=== PATIENT | male | born 1985 | race African-American/Black ===

== ENCOUNTER 2019-04-06 12:47 | Inpatient (IN) ==
[2019-04-06] MEDS ORDERED: ASPIRIN PO ONE (13:08)
[2019-04-06] MEDS ORDERED: DECADRON IV ONE (13:23)
[2019-04-06] MEDS ORDERED: TORADOL IV ONE (13:23)
[2019-04-06] MEDS ORDERED: NORFLEX IV ONE (13:23)
[2019-04-06 13:27] LABS: BASO# 0.02 X1000 (0.0-0.2); BASO% 0.2 % (0.0-0.8); EOS# 0.04 X1000 (0.0-0.7); EOS% 0.4 % (0.0-10.0); HEMATOCRIT 44.1 % (42.0-52.0); HEMOGLOBIN 14.6 g/dL (14.0-18.0); IMM GRAN# 0.04 X1000 (0.0-0.04); IMM GRAN% 0.4 % (0.0-0.5); LYMPH# 1.41 X1000 (1.2-3.4); MCH 26.4 PG (27-31); MCHC 33.1 g/dL (33-37); MCV 79.6 FL (81-99); MONO# 1.27 X1000 (0.11-0.59); MONO% 12.6 % (1.7-9.3); MPV 11.9 FL (7.4-10.4); NEUT# 7.26 X1000 (1.4-6.5); NEUT% 72.4 % (42.2-75.2); PLT 216 X1000 (130-400); RBC 5.54 XMIL (4.7-6.1); RDW 13.9 % (11.5-14.5); WBC 10.04 X1000 (4.8-10.8)
--- NOTE | 2019-04-06 13:37 | EKG Report ---
Test Performed on : 04/06/2019 12:56:03 PM Test Reason : sob Blood Pressure : / mmHG Vent. Rate : 104 BPM Atrial Rate : 104 BPM P-R Int : 158 ms QRS Dur : 086 ms QT Int : 324 ms P-R-T Axes : 051 018 019 degrees QTc Int : 426 ms Sinus tachycardia. Possible Left atrial enlargement Nonspecific T wave abnormality Abnormal ECG No previous ECGs available Unconfirmed Result
[2019-04-06 13:45] LABS: INR 1.14; PROTIME 14.8 Seconds (11.0-16.0)
[2019-04-06 13:46] LABS: PTT 28.2 Seconds (22.3-41.8)
[2019-04-06 13:58] LABS: AGAP 16; ALB/GLOB RATIO 1.6; ALBUMIN 4.6 g/dL (3.5-5.0); ALKALINE PHOSPHATASE 71 U/L (32-122); BUN 14 mg/dL (8-22); CALCIUM 9.4 mg/dL (8.8-10.2); CHLORIDE 98 mmol/L (98-107); COSMO 276; CREATININE 1.3 mg/dL (0.7-1.2); ESTIMATED GFR > 60; GLUCOSE 100 mg/dL (70-104); GOT 17 U/L (10-34); GPT 45 U/L (10-44); POTASSIUM 4.4 mmol/L (3.5-5.1); SODIUM 138 mmol/L (136-145); TCO2 24 mmol/L (25-35); TOTAL BILIRUBIN 1.34 mg/dL (0.20-1.00); TOTAL PROTEIN 7.4 g/dL (6.3-8.3)
[2019-04-06 14:00] LABS: CK PROFILE 227 U/L (24-204)
--- NOTE | 2019-04-06 14:19 | Diag Imaging Result Doc PS360 ---
EXAM: CT ANGIOGRM PULMONARY ARTERIES 04/06/2019 HISTORY: sob TECHNIQUE: This exam was performed using automated exposure control, adjustment of mA or kV according to patient size, and/or use of iterative reconstruction technique. COMMENT: 3-D MIPS were performed. There are filling defects in the pulmonary artery branches in both lower lobes and both upper lobes and in the main right pulmonary artery. There is a small amount of pleural fluid on the left. The aorta is normal in caliber without evidence of dissection. There are platelike opacities in the right lower lobe and denser consolidation in the left lower lobe consistent with pneumonia. The regional skeleton appears to be intact. There is no evidence of acute disease in the visualized portion of the abdomen. IMPRESSION: Bilateral pulmonary emboli. Atelectasis right lower lobe. Pneumonia and pleural effusion on the left. Electronically signed by Juan Palmer 04/06/2019 2:17 PM
[2019-04-06 14:21] LABS: CK INDEX 0.5 (0.0-2.5); CK-MB 1.05 ng/mL (0.0-5.0)
[2019-04-06] MEDS ORDERED: LOVENOX 1 MG/KG SUBQ ONE (14:37)
[2019-04-06] MEDS ORDERED: LOVENOX SUBQ ONE (15:15)
--- NOTE | 2019-04-06 15:34 | PROVIDER DOCUMENTATION ---
This chart was entered by Keyonna Dumont Scribe, acting as scribe for Nelson Buenrostro MD. HPI-Respiratory General - General Chief Complaint: Shortness of Breath Stated Complaint: SOB Time Seen by Provider: 04/06/19 13:18 Source: patient Allergies/Adverse Reactions: Patient Allergies Allergy/AdvReac Type Severity Reaction Status Date / Time No Known Allergies Allergy Verified 03/16/19 21:37 Home Medications: Home Medication List Medication Instructions Recorded Confirmed Last Taken Type Hydrocodone/Acetaminophen 1 ea PO PRN PRN 04/06/19 04/06/19 Unknown History [Hydrocodone-Acetamin 5-325 mg] - History of Present Illness-Resp Nature of Presenting Problem: Patient is a 33 year old male who presents with shortness of breath and left posterior chest wall pain. States having achilles tendon repair done by Dr. Swanson 1 week ago. Denies cough and family history of blood clots. Quality of Pain: reports: aching Severity in ED: reports: mild Onset/Duration: reports: 1 week ago Timing: reports: still present, getting worse Cough Quality/Degree: reports: no cough Modifying Factors: worse with: deep breath Associated Symptoms: reports: chest pain/soreness, shortness of breath. denies: cough Similar Symptoms Previously?: Yes Recently seen or treated by another doctor?: Yes Review of Systems - Adult - REVIEW OF SYSTEMS - ADULT Constitutional: reports: no symptoms reported Eyes: reports: no symptoms reported Ears, Nose, Mouth & Throat: reports: no symptoms reported Cardiovascular: reports: no symptoms reported Respiratory: reports: see HPI, shortness of breath. denies: cough, wheezing Gastrointestinal: reports: no symptoms reported Genitourinary: reports: no symptoms reported Musculoskeletal: reports: see HPI, other (left posterior chest wall pain). denies: back pain, neck pain Integumentary: reports: no symptoms reported Neurological: reports: no symptoms reported Psychiatric: reports: no symptoms reported Endocrine: reports: no symptoms reported Hematologic/Lymphatic: reports: no symptoms reported Allergic/Immunologic: reports: no symptoms reported All Other Systems: Reviewed and Negative Past History - Adult - PAST MEDICAL HISTORY-ADULT Review of Records: reports: Old Records Reviewed, Nursing Assessment Review, Medications Reviewed, Social history reviewed & non-contributory. Major Childhood Illnesses: reports: denies history Cardiovascular: reports: denies history Respiratory: reports: denies history Gastrointestinal: reports: denies history Obstetrical/Gynecological: reports: denies history Genitourinary: reports: denies history Musculoskeletal: reports: denies history Neurological: reports: denies history Endocrine/Immune: reports: denies history Other Conditions: reports: denies history - PRIOR SURGERIES/PROCEDURES Surgical/Procedure History: reports: reviewed, not pertinent - IMMUNIZATION STATUS Childhood Immunizations: See Nurse Assessment Flu Vaccine: See Nurse Assessment - FAMILY HISTORY Family History: reviewed, not pertinent - SOCIAL HISTORY Smoking: denies Substance Use: denies Physical Exam-General - PHYSICAL EXAM-ADULT Initial Vital Signs Reviewed: Yes - CONSTITUTIONAL General Appearance: alert, no apparent distress. negative: lethargic - HEAD, EARS, NOSE, MOUTH & THROAT HENMT: normocephalic/atraumatic, moist mucous membranes. negative: angioedema - RESPIRATORY Respiratory: chest non-tender, lungs clear, normal breath sounds. negative: crackles, rhonchi - CARDIOVASCULAR Cardiovascular: tachycardia. negative: regular rate, rhythm, systolic murmur - GASTROINTESTINAL (ABDOMEN) Abdominal Exam: normal bowel sounds, non tender, soft. negative: rigid - SKIN Integumentary: normal color, normal turgor, warm/dry. negative: pallor - NEUROLOGIC Neurologic: grossly normal. negative: aphasia, facial droop - PSYCHIATRIC Psych/Mental Status: normal mood/affect, oriented x 3. negative: anxious Progress - PLAN OF CARE/RESULTS Progress/Plan/Lab Results: Vital Signs - 8 hr 04/06/19 13:00 Temperature 97.5 F L Pulse Rate 108 H Respiratory Rate 20 Blood Pressure 155/77 O2 Sat by Pulse Oximetry 92 L Laboratory Results - last 24 hr 04/06/19 04/06/19 04/06/19 13:02 13:02 13:02 WBC 10.04 RBC 5.54 Hgb 14.6 Hct 44.1 MCV 79.6 L MCH 26.4 L MCHC 33.1 RDW Std Deviation 13.9 Plt Count 216 MPV 11.9 H Immature Gran % (Auto) 0.4 Neut % (Auto) 72.4 Lymph % (Auto) 14.0 L Tama % (Auto) 12.6 H Eos % (Auto) 0.4 Baso % (Auto) 0.2 Immature Gran # (Auto) 0.04 Neut # (Auto) 7.26 H Lymph # (Auto) 1.41 Tama # (Auto) 1.27 H Eos # (Auto) 0.04 Baso # (Auto) 0.02 PT INR PTT (Actin FS) Sodium 138 Potassium 4.4 Chloride 98 Carbon Dioxide 24 L Anion Gap 16 BUN 14 Creatinine 1.3 H Estimated GFR/1.73 m2 > 60 BUN/Creatinine Ratio 11 Glucose 100 Calculated Osmolality 276 Calcium 9.4 Total Bilirubin 1.34 H AST 17 ALT 45 H Alkaline Phosphatase 71 Creatine Kinase 227 H Creatine Kinase Index 0.5 CK-MB (CK-2) 1.05 Troponin T [id number] Pept 13 Total Protein 7.4 Albumin 4.6 Globulin 2.8 Albumin/Globulin Ratio 1.6 04/06/19 04/06/19 13:02 13:02 WBC RBC Hgb Hct MCV MCH MCHC RDW Std Deviation Plt Count MPV Immature Gran % (Auto) Neut % (Auto) Lymph % (Auto) Tama % (Auto) Eos % (Auto) Baso % (Auto) Immature Gran # (Auto) Neut # (Auto) Lymph # (Auto) Tama # (Auto) Eos # (Auto) Baso # (Auto) PT 14.8 INR 1.14 PTT (Actin FS) 28.2 Sodium Potassium Chloride Carbon Dioxide Anion Gap BUN Creatinine Estimated GFR/1.73 m2 BUN/Creatinine Ratio Glucose Calculated Osmolality Calcium Total Bilirubin AST ALT Alkaline Phosphatase Creatine Kinase Creatine Kinase Index CK-MB (CK-2) Troponin T < 0.010 [id number] Pept Total Protein Albumin Globulin Albumin/Globulin Ratio Orders Category Date Time Status Cardiac Monitoring DIRECTED Care 04/06/19 13:08 Active Oxygen Therapy- ED Nursing DIRECTED Care 04/06/19 13:08 Active Saline Loc NOW Care 04/06/19 13:08 Active CTA [CT ANGIOGRM PULMONARY ARTERIES] [CT] Stat Exams 04/06/19 13:11 Completed CBC WITH ELECTRONIC DIFF [HEME] Stat Lab 04/06/19 13:02 Completed CK PROFILE [SP CHEM] Stat Lab 04/06/19 13:02 Completed COMPREHENSIVE METABOLIC PANEL [CHEM] Stat Lab 04/06/19 13:02 Completed PRO B-NATRIURETIC PEPTIDE Stat Lab 04/06/19 13:02 Completed PROTIME WITH INR [COAG] Stat Lab 04/06/19 13:02 Completed PTT [COAG] Stat Lab 04/06/19 13:02 Completed TROPONIN T Stat Lab 04/06/19 13:02 Completed Aspirin Med 04/06/19 13:08 Discontinued 325 mg PO NOW ONE Dexamethasone [Decadron] Med 04/06/19 13:23 Discontinued 10 mg IV NOW ONE Enoxaparin 1 mg/kg [Lovenox 1 mg/kg] Med 04/06/19 14:37 Discontinued 1 each SUBQ NOW ONE Enoxaparin [Lovenox] Med 04/06/19 15:15 Discontinued 110 mg SUBQ NOW ONE Ketorolac [Toradol] Med 04/06/19 13:23 Discontinued 30 mg IV NOW ONE Orphenadrine [Norflex] Med 04/06/19 13:23 Discontinued 60 mg IV NOW ONE CP/SOB/Palp >45 yrs of Age Stat Oth 04/06/19 13:08 Ordered EKG [EKG] Stat Ther 04/06/19 13:08 Draft Transfer/Admit Order [TRANSFER] Routine Transfer 04/06/19 15:23 Ordered Result Diagrams: 04/06/19 13:02 04/06/19 13:02 - EKG 1 Time of EKG reading by physician:: 12:56 EKG Read and Signed by:: Nelson Buenrostro EKG Interpretation (*Must complete 3 of following elements*): Abnormal Rate: 104 Rhythm: sinus tachycardia [place]: normal [place] Interval: normal Comments: LAS; NSSTTWC; early transition - CT/MRI 1 CT Study: Angiogram Impression: See EMR Report ( EXAM: CT ANGIOGRM PULMONARY ARTERIES 04/06/2019 HISTORY: sob TECHNIQUE: This exam was performed using automated exposure control, adjustment of mA or kV according to patient size, and/or use of iterative reconstruction technique. COMMENT: 3-D MIPS were performed. There are filling defects in the pulmonary artery branches in both lower lobes and both upper lobes and in the main right pulmonary artery. There is a small amount of pleural fluid on the left. The aorta is normal in caliber without evidence of dissection. There are platelike opacities in the right lower lobe and denser consolidation in the left lower lobe consistent with pneumonia. The regional skeleton appears to be intact. There is no evidence of acute disease in the visualized portion of the abdomen. IMPRESSION: Bilateral pulmonary emboli. Atelectasis right lower lobe. Pneumonia and pleural effusion on the left. Electronically signed by Juan Palmer 04/06/2019 2:17 PM 04/06/19 1417 Interpreting Physician: Juan Palmer MD Dictated Date/Time: 04/06/19 1415 cc: Nelson Buenrostro MD; None,PCP) - CONSULTS/PCP/HOSPITALIST Notification #1 *Consult/PCP/Hospitalist*: Kiki 1445 Time Discussed: 15:02 Reason/Comments: Dr. Buenrostro consulted with Dr. Swanson about patient's CT scan. #2 Consult: GENOVEVA Menchaca, paged at 1445 Time Discussed: 15:22 Reason/Comments: Dr. Buenrostro consulted with Bernarda about patient Consult Disposition: Will see in ED, Admit Departure - Departure Date of Disposition Decision: 04/06/19 Time of Disposition Decision: 14:46 DIAGNOSIS: Bilateral pulmonary embolism Post-operative complication Qualifiers: Surgical complication system/body Area: musculoskeletal system Surgical complication type: unspecified Procedure type: non-musculoskeletal Qualified Code(s): M96.89 - Other intraoperative and postprocedural complications and disorders of the musculoskeletal system Disposition: ADMITTED INPATIENT 09 Certified Medical Emergency: Emergent Condition: Fair Referrals and Follow-Ups: None,PCP [Primary Care Provider] - - Critical Care Note This patient required my direct & personal management of CC.: Yes Total Time (mins): 35 Critical Care Statement: This patient required my direct personal management to treat or rule out processes, the absence of which, could potentiallly result in sudden, clinically significant life or limb threatening deterioration. Attestation - Physician/ REGGIE Attestation Patient care was provided by Advanced Practice Provider:: No The physician spent face to face time with patient:: Yes Advanced Practice Provider documentation review:: Supervising physician onsite and consulted in the evaluation and care of this patient. The physician did have a face to face encounter with the patient. This chart was documented by the indicated scribe, (Keyonna Dumont Scribe) and accurately reflects the services I performed and decisions made by me, Nelson Buenrostro MD, as attested by the provider's signature.
[2019-04-06] MEDS ORDERED: MORPHINE IV ONE (16:07)
[2019-04-06] MEDS ORDERED: MAXIPIME 2 GM in NS 100 ML IV SCH (16:53)
[2019-04-06] MEDS ORDERED: ZOFRAN IV PRN (16:53)
[2019-04-06] MEDS ORDERED: TYLENOL PO PRN (16:53)
[2019-04-06] MEDS ORDERED: ALBUTEROL NEB INH PRN (17:06)
[2019-04-06] MEDS: NS 1,000 ML IV SCH (17:10)
[2019-04-06] MEDS: ZYVOX 600 MG/D5W 600 MG/300 ML IVPB IV SCH (17:10)
[2019-04-06] MEDS ORDERED: LOVENOX 1 MG/KG SUBQ SCH (17:15)
--- NOTE | 2019-04-06 18:29 | Diag Imaging Result Doc PS360 ---
EXAM: CHEST-PORTABLE HISTORY: Pneumonia TECHNIQUE: Single view COMPARISON: None. FINDINGS: Poor inspiratory effort. The heart is mildly prominent. The vessels are not distended. There are mild increased markings in the left base. No effusion identified. IMPRESSION: Left lower lobe pneumonia Electronically signed by Chas Saenz 04/06/2019 6:26 PM
[2019-04-06] MEDS: MAXIPIME 2 GM/NS 2 GM/100 ML IVPB IV SCH (19:33)
--- NOTE | 2019-04-06 19:57 | HISTORY AND PHYSICAL ---
PRIMARY CARE PROVIDER: None. ORTHOPAEDIST: Dr. Zen Swanson. CHIEF COMPLAINT: Shortness of breath, left-sided chest pain. HISTORY OF PRESENT ILLNESS: Mr. Jones is a 33-year-old male who reports he underwent surgery [address] Swanson for a torn Achilles heel. He came to the ED today after suffering from shortness of breath and left posterior chest pain. Upon arrival to the ED, he was tachycardic and hypoxemic. He had a CTA of the chest that showed bilateral PEs and left lower lobe pneumonia and a left pleural effusion. He had acute kidney injury. He was started on full-dose Lovenox, which we will continue b.i.d. and initiate him on postoperative pneumonia antibiotics with broad-spectrum coverage, supplemental O2 and a pain regimen with p.o. Percocet and IV morphine for breakthrough pain. PAST MEDICAL HISTORY: Denies. PAST SURGICAL HISTORY: 1. Left biceps repair from a football injury. 2. Right Achilles heel repair from a tear secondary to a basketball injury. FAMILY HISTORY: Father with diabetes mellitus type 2. SOCIAL HISTORY: Mr. Jones is not . He does have a baby on the way in about 2 weeks. He works at [employer]. No alcohol, tobacco. Occasional alcohol. ALLERGIES: Demerol causes a rash. HOME MEDICATIONS: Percocet from his Achilles surgery. REVIEW OF SYSTEMS: Twelve-point review of systems was completely negative except for those mentioned in the HPI. Positive for shortness of breath and left posterior chest wall pain. He denies any fever, chills, cough, cardiac-type chest pain, nausea, vomiting, diarrhea or constipation. PHYSICAL EXAMINATION: VITAL SIGNS: Mr. Jones is a is pleasant 33-year-old male who is sitting up in the bed in no acute distress. HEENT: Atraumatic, normocephalic. PERRL. NECK: Supple. Trachea midline. CARDIOVASCULAR: S1, S2 appreciated. No murmurs, gallops, or rubs noted. RESPIRATORY: Lung sounds clear bilaterally. There is some crepitus on the left lower lobe, as well as tenderness. GASTROINTESTINAL: Soft, nontender, nondistended. Positive bowel sounds in 4 quadrants. His right lower extremity is in a cast. NEUROLOGIC: No focal deficits noted. DIAGNOSTIC DATA: CT of the chest showed bilateral pulmonary emboli, atelectasis in the right lower lobe, pneumonia and pleural effusion on the left. LABORATORY DATA: White count 10, hemoglobin and hematocrit 14 and 44, platelet count 216. Sodium 138, potassium 4.4, BUN 14, creatinine 1.3. Blood glucose is 102. Total bilirubin 134, ALT 45. CK 227, troponin less than 0.010. ProBNP is 13. ASSESSMENT AND PLAN: 1. Bilateral pulmonary emboli postop after right Achilles tendon repair. The patient has been initiated on full-dose Lovenox. We will transition to Eliquis or Xarelto, depending on patient's affordability of his insurance. 2. Left lower lobe postoperative pneumonia. We will initiate him on broad-spectrum antibiotics with Zyvox and cefepime. 3. Hypoxemic upon arrival, with complaint of left posterior chest wall pain. We will continue with supplemental O2, p.o. and IV pain regimen for breakthrough pain, aggressive pulmonary toilet. 4. Acute kidney injury with elevated CK. We will diurese him overnight and recheck his creatinine and CK in the a.m. 5. Further recommendation to follow physician evaluation, laboratory and diagnostic data. Dictated by GENOVEVA Blackman for Matthew Booth MD cc: MD Zen Cote MD
--- NOTE | 2019-04-06 20:45 | HISTORY AND PHYSICAL ---
ADDENDUM: Mr. Jones is a 33-year-old gentleman with no comorbidities. He developed an injury to his right ankle about 2 weeks ago, which was surgically intervened upon by Dr. Swanson about a week ago. He said was doing fairly okay, but then 3 days ago he started having pleuritic chest pain to the back associated with some shortness of breath. He called his orthopedists and they told him to come to the emergency room because they did not think that was associated with surgery. In the emergency room he was evaluated. His initial vitals revealed a blood pressure of 155/77. He was also found to be hypoxemic with a respiratory rate with O2 saturation of 92, and slightly tachycardic with a blood with a pulse of 108. An EKG was initially done which shows mild sinus tachycardia. LABORATORY DATA: Has also been reviewed. His troponins have been negative and his pro B was normal. IMAGING: A CTA of the lungs was done, which shows bilateral pulmonary emboli associated with atelectasis in the right lower and denser consolidation in the left lower lobe consistent with pneumonia. ASSESSMENT: 1. Acute hypoxemic respiratory failure associated with pleuritic chest pain secondary to acute bilateral pulmonary emboli. The patient has been started on anticoagulation. 2. Bilateral lower lobe infiltrate, worse on the left than the right, concerning for pneumonia. However, I think this is probably an infarcted lung from the pulmonary embolus; however, a superimposed infection cannot be ruled out and I think it is reasonable to start him on antibiotics. VTE is provoked. No need to embark on thrombophilic work up. 3. Clinical volume depletion. We will continue with gentle fluids. 4. Microcytosis. We will check his iron studies. 5. Acute kidney injury presumably from volume depletion. We will continue with IV fluids and re- evaluate his labs in the morning. 6. Morbid obesity with a body mass index of 38.4. The patient has been counseled. 7. Recent left ankle surgery after orthopedic injury. PLAN: Please refer to the details of the history and physical that has been dictated by the nurse practitioner in the chart. For now, we are going to continue with Lovenox. I did explain to Mr. Jones about oral anticoagulation, Coumadin versus the newer anticoagulants. We will get social work to come and talk to him about his affordability of the newer anticoagulants. We will hopefully transition him to p.o. anticoagulant tomorrow if he is doing. If he is hemodynamically stable. cc: Matthew Booth MD MTDD
[2019-04-07] MEDS: NS 1,000 ML IV SCH ×2 (03:30→14:56)
[2019-04-07] MEDS: ZYVOX 600 MG/D5W 600 MG/300 ML IVPB IV SCH ×2 (04:46→15:59)
[2019-04-07] MEDS: LOVENOX SUBQ SCH ×2 (04:46→15:56)
[2019-04-07] MEDS: MORPHINE IV PRN (04:46)
[2019-04-07 05:52] LABS: HEMATOCRIT 40.3 % (42.0-52.0); HEMOGLOBIN 13.4 g/dL (14.0-18.0); IMM GRAN# 0.05 X1000 (0.0-0.04); IMM GRAN% 0.4 % (0.0-0.5); LYMPH# 0.75 X1000 (1.2-3.4); LYMPH% 6.6 % (20.5-51.1); MCH 26.8 PG (27-31); MCHC 33.3 g/dL (33-37); MCV 80.6 FL (81-99); MONO# 1.01 X1000 (0.11-0.59); MONO% 8.9 % (1.7-9.3); MPV 12.1 FL (7.4-10.4); NEUT# 9.52 X1000 (1.4-6.5); NEUT% 84.1 % (42.2-75.2); PLT 187 X1000 (130-400); RDW 13.8 % (11.5-14.5); WBC 11.33 X1000 (4.8-10.8)
[2019-04-07 06:07] LABS: AGAP 14; ALB/GLOB RATIO 1.3; ALBUMIN 4.1 g/dL (3.5-5.0); ALKALINE PHOSPHATASE 65 U/L (32-122); BUN 18 mg/dL (8-22); CALCIUM 9.4 mg/dL (8.8-10.2); CHLORIDE 100 mmol/L (98-107); CK PROFILE 171 U/L (24-204); COSMO 277; CREATININE 1.3 mg/dL (0.7-1.2); ESTIMATED GFR > 60; GLUCOSE 125 mg/dL (70-104); GOT 25 U/L (10-34); GPT 43 U/L (10-44); POTASSIUM 4.4 mmol/L (3.5-5.1); SODIUM 137 mmol/L (136-145); TCO2 23 mmol/L (25-35); TOTAL BILIRUBIN 0.62 mg/dL (0.20-1.00); TOTAL PROTEIN 7.3 g/dL (6.3-8.3)
[2019-04-07] MEDS: MAXIPIME 2 GM/NS 2 GM/100 ML IVPB IV SCH ×2 (07:29→20:13)
--- NOTE | 2019-04-07 19:01 | PROGRESS NOTE ---
DATE: 04/07/2019 SUBJECTIVE: This morning Mr. Jones refers to be doing well. He said the coughing has improved and that his breathing is also significantly better. He said he is not having any more pain when he takes in deep breaths. OBJECTIVE: Vital signs: Blood pressure is 131/66, pulse of 89, respirations 17, temperature 99 degrees. The patient was saturating 99% on room air. On general exam, Mr. Jones is a 33-year- old gentleman. He is in bed, in no distress. Mucosa is pink and moist. Anicteric. Acyanotic. Neck is supple.Chest: Air entry is bilaterally reduced. Some crackles in the posterior lung lee, left more than right. Cardiovascular: Regular rate and rhythm. No murmurs, no rubs, no gallops. GI: Abdomen was soft, distended but nontender. Bowel sounds present. Extremities: No pedal edema. 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 LABORATORY DATA: WBC of 11.33, hemoglobin is 13.4, platelet count of 187,000. Chemistry is also reviewed. Creatinine of 1.3. ASSESSMENT AND PLAN: 1. Acute hypoxemic respiratory failure associated with pleuritic chest pain secondary to bilateral pulmonary emboli, complicated with pulmonary infarction. The patient is on Lovenox subcutaneously at weight-based dose. We will transition this to p.o. Eliquis tomorrow. 2. Bilateral lower lobe infiltrate, worse on the left than the right, concerning for pneumonia versus pulmonary infarction with possible superimposed pneumonia. The patient is on intravenous antibiotics. We plan to transition to oral as well tomorrow. 3. Clinical volume depletion, improved. 4. Microcytosis. 5. Acute kidney injury. Creatinine remains at 1.3. We are going to repeat this tomorrow. 6. Recent left ankle surgery after a traumatic injury. The patient is in orthopedic cast. So in general, I think Mr. Jones is doing okay. He has a provoked pulmonary embolism that is complicated with bilateral pulmonary infarction, more on the left than the right, with suspected superimposed pneumonia. He is clinically and hemodynamically stable. We are going to switch him from Lovenox to Eliquis tomorrow. He has been evaluated by Orthopedics today. I think they plan to change the cast on his foot. Hopefully we can get him discharged tomorrow. cc: Matthew Booth MD
--- NOTE | 2019-04-07 19:44 | ORTHOPAEDICS CONSULTATION ---
DATE: 04/06/2019 SERVICE: Orthopedic surgery. REQUESTING PHYSICIAN: Matthew Booth MD REASON FOR CONSULTATION: Pulmonary embolus status post orthopedic surgery. PAST MEDICAL HISTORY: None. PAST SURGICAL HISTORY: 1. Left biceps repair with Dr. Gomez. 2. Right Achilles tendon repair with me 8 days ago. MEDICATIONS: None. ALLERGIES: Demerol, which caused him to break out in a rash. SOCIAL HISTORY: Patient works at [employer]. Denies any tobacco or drug use. Reports occasional alcohol use. FAMILY HISTORY: The patient denies any history of bleeding or clotting disorders in himself or his immediate family. REVIEW OF SYSTEMS: Ten point review of systems is negative other than what is listed in his present illness. CHIEF COMPLAINT: Pulmonary embolus status post right Achilles tendon repair. HISTORY OF PRESENT ILLNESS: Mr. Guy is a 33-year-old gentleman who has been seen and followed by me for Achilles tendon rupture on the right heel sustained while playing basketball a couple of weeks ago. He underwent operative repair of his Achilles tendon 8 days ago. The patient was doing well with this until about 3 days ago when he began developing some mild pain in his chest and back. He called my office yesterday morning saying he was having some mild shortness of breath and increased pain in the chest. Given these symptoms, I told him to go to the ER for workup and evaluation. CT scan done in the ER demonstrated bilateral pulmonary emboli. The patient was thus admitted to the hospitalist service. Started on anticoagulation. The patient states he was doing well up until the development of his respiratory symptoms. He has no prior history of DVT or clotting disorder. He states he is doing well as far as his right ankle goes and denies any pain in the right lower extremity. PHYSICAL EXAMINATION: General: Mr. Guy is a 33-year-old male appears well nourished, well developed, in no acute distress. He is awake, alert, oriented x3. He is very polite and cooperative during examination. Vital Signs: Temperature 98.9 degrees Fahrenheit, heart rate 82, respiratory rate 16, blood pressure 129/65, O2 saturation 98% on 2 L by nasal cannula. HEENT: Normocephalic and atraumatic. Respiratory: Nonlabored breathing. Cardiovascular: Regular rate and rhythm. Extremities: Examination of right lower extremity reveals a short-leg splint to be intact in good repair. Toes are up and downgoing. Dorsalis pedis pulse is palpable. Sensation is intact to light touch in deep peroneal, superficial peroneal and tibial nerve distribution. His calf feels soft and compressible at the superior aspect of the splint. Thigh is soft. LABORATORY DATA: White count 11, hemoglobin 13, hematocrit 40, platelets 187,000. INR is 1.1. ASSESSMENT: A 33-year-old male status post right Achilles tendon repair 8 days ago with subsequent postoperative pulmonary embolus. PLAN: 1. Patient should continue to be nonweightbearing of his right lower extremity. I encouraged him to mobilize with crutches as tolerated. 2. Ice and elevate the right lower extremity at all times. Float the heel to prevent heel ulcer. 3. Appreciate hospitalist recommendations regarding pulmonary embolus. He is currently on Lovenox. The plan is to transition to Eliquis tomorrow. His respiratory status is improving. 4. Disposition per primary team. I will plan on seeing him in clinic on Thursday for a wound check and to place him in a short-leg cast at that time. I will continue to follow him while in the hospital. Please call with any questions.
[2019-04-07] MEDS: PERCOCET-5 PO PRN (20:12)
[2019-04-08] MEDS: NS 1,000 ML IV SCH (02:38)
[2019-04-08] MEDS: MORPHINE IV PRN (04:25)
[2019-04-08] MEDS: ZYVOX 600 MG/D5W 600 MG/300 ML IVPB IV SCH (04:29)
[2019-04-08] MEDS: PERCOCET-5 PO PRN (08:22)
[2019-04-08] MEDS: MAXIPIME 2 GM/NS 2 GM/100 ML IVPB IV SCH (08:22)
[2019-04-08] MEDS ORDERED: ELIQUIS PO SCH (09:00)
[2019-04-08 11:14] VITALS: BP 135/84
--- NOTE | 2019-04-09 20:55 | DISCHARGE SUMMARY ---
ADMISSION DATE: 04/06/2019 DISCHARGE DATE: 04/08/2019 DISPOSITION: Home. FOLLOW-UP: Dr. Arroyo. CONSULTATION DURING THIS ADMISSION: Orthopedics was consulted. Patient was seen by Dr. Swanson. INVASIVE PROCEDURES DONE DURING THIS ADMISSION: None. IMAGING STUDIES OF SIGNIFICANCE: A CT scan of the chest did show bilateral pulmonary emboli, atelectasis, right lobe pneumonia and pleural effusion on the left. A chest x-ray did show left lower lobe pneumonia. ADMISSION DIAGNOSIS: 1. Bilateral pulmonary emboli. 2. Left lower lobe postoperative pneumonia. 3. Hypoxemic on arrival. 4. Acute kidney injury. DIAGNOSIS AT THE TIME OF DISCHARGE: 1. Acute hypoxemic respiratory failure on presentation associated with pleuritic chest pain. 2. Bilateral pulmonary emboli complicated with pulmonary infarction. 3. Bilateral lower lobe infiltrate, worse on the left than the right, concerning for pulmonary infarction with possible superimposed pneumonia. 4. Clinical volume depletion, improved. 5. Acute kidney injury. 6. Microcytosis. 7. Recent left ankle surgery after traumatic injury. DISCHARGE MEDICATIONS: 1. [place]. 2. Eliquis 5 mg b.i.d. 3. Oxycodone. 4. Augmentin. PRESENTING COMPLAINT: Shortness of breath, left-sided chest pain. HISTORY OF PRESENTING COMPLAINT: Mr. Jones is a 33-year-old gentleman who presented to the emergency department because of shortness of breath, left-sided chest pain. He had just done a right ankle repair surgery for Achilles heel tear and was really not recovering at home, has not been very active. He started having some shortness of breath and pleuritic chest pain, presented to the emergency room where he was evaluated including a CT of the lungs which showed bilateral PE with possible left lower lobe and right lower lobe pneumonia. He was admitted to the hospital for further medical care. HOSPITAL COURSE: Mr. Jones was admitted to [facility], started on therapeutic weight based subcutaneous Lovenox and IV antibiotics, which he responded well. He was weaned off on oxygen therapy. He was saturating 96 to 100 percent on room air in the later part of his hospital stay. He also referred to feel a whole lot better from the pleuritic chest pain standpoint. This morning he has been switched to p.o. Eliquis and we think he is stable enough to be discharged. He is going to be on 7 days of 10 mg b.i.d. of Eliquis after which he will transition to 5 mg b.i.d. for a total of 6 months. He is going to follow up with Dr. Arroyo, who will determine the end of therapy and further medical care. Mr. Jones did not have any thrombophilic workup because we think this was provoked DVT. However, he will need to follow up with Hematology. All the discharge instructions were discussed with him. His dad mom were both at the bedside at the time of the discharge and they all voiced understanding. Time spent for discharge is 35 minutes. cc: Matthew Booth MD
== END 2019-04-08 13:00 | disposition home or self-care (01) | DRG 299 ==
LOC: ED 12:47 → 2N 15:59
PROVIDERS: ATTEND Internal Medicine